=== PATIENT | female | born 2000 | race Caucasian/White ===

== ENCOUNTER 2022-02-22 09:39 | Emergency (ER) | payer BC ==
[2022-02-22 11:10] LABS: Pregnancy Test - Urine (BHCG) Negative (Negative); Pregu Control Background? CLEAR/WHITE (CLR/WHITE); Pregu Control Bar Appear? YES (CONTROL BAR); Specific Gravity 1.008 (1.002-1.036)
== END 2022-02-22 13:24 | disposition home or self-care (01) ==
LOC: ERS 09:39
DX: M79.605 Pain in left leg (principal)
CPT/HCPCS: 36415; 81025; 85379